=== PATIENT | female | born 1940 | race Caucasian/White ===

== ENCOUNTER 2019-06-10 11:56 | Emergency (ER) | payer OTHER ==
[~2019-06-10] VITALS: Ht 160 cm; Wt 60.8 kg
[2019-06-10] MEDS ORDERED: ATORVASTATIN CA10 MG PO (12:30)
[2019-06-10] MEDS ORDERED: AMLODIPINE BESYL5 MG (12:30)
[2019-06-10] MEDS ORDERED: FOLGARD TABLET1 EACH PO (12:31)
[2019-06-10] MEDS ORDERED: ZESTRIL2.5 MG PO (12:31)
[2019-06-10] MEDS ORDERED: MEDROLPACK PO (15:52)
[2019-06-10] MEDS ORDERED: CANDESARTAN CILE8 MG PO (15:52)
[2019-06-10] MEDS ORDERED: ZYRTEC10 M3 PO (15:52)
== END 2019-06-10 16:05 | disposition home or self-care (01) ==
LOC: ER 11:56
DX: T78.3XXA Angioneurotic edema, initial encounter (principal); T78.49XA Other allergy, initial encounter; X58.XXXA Exposure to other specified factors, initial encounter